=== PATIENT | male | born 1985 | race Caucasian/White ===

== ENCOUNTER 2016-10-26 04:00 | Inpatient (IN) | payer OTHER ==
[~2016-10-26] VITALS: Ht 182.9 cm; Wt 101.0 kg
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
--- NOTE | ~2016-10-26 | OR ---
PATIENT'S NAME: EDY GODINEZ [facility] AGE: 30 Y [address] ROOM: [address] [address] LOCATION: GICU ADMIT DATE: 10/26/2016 OR/Procedure Report DISCHARGE DATE: FAMILY PHYSICIAN: Lisa Van MD ATTENDING PHYSICIAN: Arnaldo Griffith SURGEON: Arnaldo Griffith MD COUNTER CONTROL OPERATOR: DATE OF PROCEDURE: 10/30/2016 DIAGNOSES: 1. Right acetabular comminuted posterior wall fracture, unstable. 2. Traumatic dislocation of right hip, now status post relocation in traction. 3. Chondromalacia, right hip femoral head. 4. Loose bodies within the right hip joint. 5. Sciatic nerve injury. 6. Debridement of devitalized tissues from dislocation 7. Remove Right Femoral Traction Pin ANESTHESIA: General. INDICATION: Mr. Godinez is four days status post polytrauma, had planned for open reduction and internal fixation of the right hip acetabulum yesterday, but there were thermal changes about the right hip from ice, which persisted despite removing the ice and applying warm blankets. Now, the skin is completely stable. There is no induration. Completely normal sensation. Surgery is safe. Plan for removal of loose bodies from the hip joint, chondroplasty of the femoral head, open reduction and internal fixation of the posterior acetabulum, and decompression of the sciatic nerve as well as debridement of devitalized tissue from the dislocation and trauma. Risks, benefits, and alternatives have all been discussed. Family understands risks of avascular necrosis, chondrolysis, and severe traumatic osteoarthritis, will be nonweightbearing for three months after surgery. Before beginning weightbearing, we will repeat CT scan and do a diagnostic arthroscopy. DESCRIPTION OF PROCEDURE: Mr. Godinez was taken to the operating room, 2 g Kefzol intravenously for prophylaxis, TSA protocol, general anesthetic via endotracheal tube. The right femoral traction pin was removed after prep with betadyne. Carefully positioned in a left lateral decubitus position. All pressure points were carefully checked and padded. The right flank, buttocks, and lower extremity were prepared with DuraPrep and draped sterilely. 18 cm Rose Mary-Lang[place] incision was performed, dissection through subcutaneous tissues to the gluteal fascia and the iliotibial band. Iliotibial band was opened at the anterior corner of the greater trochanter and distally was opened for approximately 3 cm. Proximally, the interval between the gluteal boris heads was identified and the fascia was released. Short rotators were identified. There was significantly traumatized from the injury. These were carefully and meticulously debrided. The sciatic nerve PATIENT'S NAME: EDY GODINEZ [facility] AGE: 30 Y [address] ROOM: [place] [address] LOCATION: GICU ADMIT DATE: 10/26/2016 OR/Procedure Report DISCHARGE DATE: FAMILY PHYSICIAN: Lisa Van MD ATTENDING PHYSICIAN: Arnaldo Griffith was identified and protected. The piriformis was divided approximately 2 cm medial to its insertion. It was tagged. Sciatic nerve was identified for the length of the incision. It was carefully and meticulously decompressed and noted to have significant contusions and surrounding hematoma. This was all debrided and irrigated. Remaining short rotators were divided approximately 2 cm medial to their insertion to protect the blood supply to the hip. Vastus lateralis was identified. Trochanteric step osteotomy was performed just taking a few fibers of the piriformis approximately 1.5 cm thick and ending at the tuberosity. This was retracted anteriorly. The capsule was divided longitudinally at its anterior lateral border, anteriorly extended distally, posteriorly extended proximally and through the fracture fragments. The hip was carefully dislocated. Ligamentum teres was disrupted from the previous dislocation and trauma. There were bone fragments within the joint. This was all carefully and meticulously debrided. There were two 1.5 cm diameter areas of at least grade 3 chondromalacia. Chondroplasty was performed. Noted to have excellent bleeding bone. The amount of dislocation time was minimized to less than 5 minutes. All remaining cartilage was stable and healthy. No significant chondromalacia within the acetabulum, but there were comminuted fractures of the posterior wall. The hip was relocated. The anterior and longitudinal capsules were closed watertight with 0 Vicryl with knots on the outside. Fracture fragments of the posterior wall were carefully debrided of blood clot and devitalized tissue. They were irrigated. They were anatomically reduced. Three screws were placed parallel to the joint and a 7- hole reconstruction plate was contoured, two screws distally and two screws proximally. Fixation was very stable. Hip easily moved. Intraoperative O- arm was used for imaging. The most lateral screw parallel to the joint surface was just at the articular border but was good. The middle screw was in the joint. The most medial screw in good position. The plate was in excellent position. Hip was well reduced concentrically and there were no remaining fragments within the joint. The middle screw that was in the joint was removed. The hip was then carefully examined and continued to be very stable. No need to replace the screw. The wound was irrigated. The remaining superior portion of the posterior capsule was repaired with 0 Vicryl. Short rotators and piriformis were reattached with 0 Vicryl. Step osteotomy was reattached anatomically with two 4.5 screws with washers. Fixation was excellent and was bicortical through the lesser trochanter, iliotibial band and the gluteal fascia were repaired with #1 Ethibond. Subcutaneous tissues were closed with 0 Vicryl, followed by 2-0 Vicryl subcuticular, followed by aura. Procedure was done without complication. Estimated blood loss from the procedure was 500 mL. No complications. FINDINGS: 1. Contused sciatic nerve, otherwise intact, well decompressed. 2. Excellent bleeding from the femoral head. 3. Excellent bone quality with very good fixation. PATIENT'S NAME: EDY GODINEZ [facility] AGE: 30 Y [address] ROOM: [place] [address] LOCATION: [facility] ADMIT DATE: 10/26/2016 OR/Procedure Report DISCHARGE DATE: FAMILY PHYSICIAN: Lisa Van MD ATTENDING PHYSICIAN: Arnaldo Griffith The patient was taken to the recovery room in stable condition. Postoperative x-rays showed concentric reduction of the femoral head with fixation in place. ARNALDO GRIFFITH MD DPM/latoya /[id number] d: 10/31/16 0216 t: 11/02/16 0843, OPERATIVE SUMMARY
--- NOTE | ~2016-10-26 | OR ---
PATIENT'S NAME: EDY GODINEZ [facility] AGE: 30 Y [address] ROOM: [place] [address] LOCATION: GICU ADMIT DATE: 10/26/2016 OR/Procedure Report DISCHARGE DATE: FAMILY PHYSICIAN: Lisa Van MD ATTENDING PHYSICIAN: Arnaldo Griffith SURGEON: Arnaldo Griffith MD LEAD TINNER: DATE OF PROCEDURE: 10/29/2016 DIAGNOSES: 1. Right acetabular posterior wall fracture. 2. Status post relocation of right hip dislocation. 3. Chondromalacia, right femoral head. 4. Sciatic nerve injury. 5. Persisting thermal changes about right buttocks. PROCEDURE: 1. Removal of femoral traction pin. 2. Replacement of femoral traction pin and replacement in traction. ANESTHESIA: General. INDICATION: Mr. Godinez is now 72 hours status post polytrauma with a right acetabular fracture for open reduction and internal fixation. Risks, benefits, and alternatives have been discussed. On dial, he has chondromalacia and will benefit from chondroplasty and with the sciatic nerve injury, would benefit from decompression. Risks, benefits, alternatives have all been discussed. DESCRIPTION OF PROCEDURE: The patient was taken to the operating, was taken from traction. The right femoral traction pin was removed, was turned onto the operative table in a left lateral decubitus position. There was a significant area of thermal changes about the right flank on the right buttock, covered with a warm blankets what was set up. For about 45 minutes, the patient was observed. Still had significant changes with some induration opted to cancel reconstructive surgery for tonight. The femoral traction was replaced and was placed back into traction. X-ray in recovery room demonstrated that the hip remained located and with a concentric reduction. We will plan to observe the skin and to perform open reduction and internal fixation when the skin is stable. ARNALDO GRIFFITH MD PATIENT'S NAME: EDY GODINEZ [facility] AGE: 30 Y [address] ROOM: [place] [address] LOCATION: GICU ADMIT DATE: 10/26/2016 OR/Procedure Report DISCHARGE DATE: FAMILY PHYSICIAN: Lisa Van MD ATTENDING PHYSICIAN: Arnaldo Griffith DPM/latoya /[id number] d: 10/31/16 0203 t: 11/02/16 0831, OPERATIVE SUMMARY
--- NOTE | ~2016-10-26 | OR ---
PATIENT'S NAME: EDY MEADOWS [facility] AGE: 30 Y [address] ROOM: [address] [address] LOCATION: [facility] ADMIT DATE: 10/26/2016 OR/Procedure Report DISCHARGE DATE: FAMILY PHYSICIAN: PHYSICIAN, UNKNOWN ATTENDING PHYSICIAN: Arnaldo Kauffman SURGEON: Arnaldo Kauffman MD PLASTER LATHER: DATE OF PROCEDURE: 10/26/2016 DIAGNOSIS: Right hip traumatic dislocation and acetabular fracture. PROCEDURE: Closed relocation of the right hip and application of a femoral traction pin. ANESTHESIA: Local and MAC. INDICATION: Polytrauma, dislocated hip since last night, urgent relocation indicated. Risks, benefits, and alternatives have been discussed. Family understands the risk of avascular necrosis and chondrolysis for closed relocation and application of a femoral traction pin. We will observe in traction for 72 hours and then plan open reduction and internal fixation of the acetabulum. The patient and family understands the plan. DESCRIPTION OF PROCEDURE: In the emergency room, informed consent, anesthesia for MAC anesthesia. Local anesthesia was applied medially and laterally of the right femur just above the patella. Prepped with. DuraPrep. A 5-mm incision was made medially just above the patella on the medial surface. 316 smooth K-wire was advanced from medial to lateral. When the skin was tented, it was nicked with a 5 mm incision. Traction bow was applied. Very carefully, the hip was relocated. The patient was transferred to the hospital bed which traction had been set up on, 30 pounds of axial femoral traction was applied with slings under the calf and the thigh. X-ray was taken, showed with concentric reduction. Procedure was done without complication. MD AURELIO GLEZM/modl /[id number] d: 10/26/16 1514 t: 10/29/16 1844, OPERATIVE SUMMARY
--- NOTE | ~2016-10-26 | DS ---
PATIENT'S NAME: EDY GODINEZ [facility] AGE: 30 Y [address] ROOM: [id number] [place], [place] [address] LOCATION: G3N ADMIT DATE: 10/26/2016 Discharge Summary DISCHARGE DATE: 11/02/2016 FAMILY PHYSICIAN: Lisa Van MD ATTENDING PHYSICIAN: Arnaldo Griffith Mr. Godinez is a healthy 30-year-old white male, polytrauma, right hip dislocation, right hip acetabulum, posterior wall comminuted fracture, cartilage injury to the right femoral head. He was in the emergency room emergently relocated and placed in traction, also had a sprain to his neck, protected in an [place] collar, and the refracture through a previous fracture of a plated fourth metacarpal. He was noted on initial evaluation to have a foot drop on the right. He was medically optimized, taken to the operating room, open reduction and internal fixation of the acetabulum, decompression of the sciatic nerve, chondroplasty of the femoral head defects, debridement of devitalized tissue from the dislocation, and removal of femoral traction pin. Procedure was done without complication. An ankle-foot orthosis was fitted. His cervical spine was cleared with upright x-rays followed by dynamic x-rays with a normal upper extremity neurologic examination. There was no instability. Plan for discharge to home on a regular diet. Change the dressing each day. Activity up, nonweightbearing on the right. Mom will do gentle range of motion of the hip, ankle-foot orthosis when up. High risk of DVT, will be on Lovenox 40 mg once a day for 2 months. [place] for pain. We will transition to Tylenol as pain improves, understands that there is significant risk of avascular necrosis, chondrolysis, and traumatic osteoarthritis. Will be nonweightbearing for 3 months. At 3 months, we will do a CT scan of the hip followed by a diagnostic arthroscopy prior to beginning weightbearing, may or may not remove fixation. We will monitor closely for the development of avascular necrosis. The left hand, we will monitor for healing, may require removal of previous fixation, and refixation and bone grafting if symptoms do not resolve. Does have a significant malunion from the previous surgery and this could be corrected at the same time. Understands that the foot drop may or may not resolve on the right. Follow up with Dr. Griffith on November 18, 2016 at 9 a.m. X-rays have been ordered at the [facility] including an AP x-ray of the pelvis, Judet views of the right hip, and left hand series. ARNALDO GRIFFITH MD DPM/latoya PATIENT'S NAME: EDY GODINEZ [facility] AGE: 30 Y [address] ROOM: [place] [address] LOCATION: [facility] ADMIT DATE: 10/26/2016 Discharge Summary DISCHARGE DATE: 11/02/2016 FAMILY PHYSICIAN: Lisa Van MD ATTENDING PHYSICIAN: Arnaldo Griffith /[id number] d: 11/02/16 1323 t: 11/05/16 1611, DISCHARGE SUMMARY
[2016-10-26 04:24] LABS: BASOPHIL % 0.2 %; EOSINOPHIL % 0.1 %; HEMATOCRIT 48.1 % (37.0-53.0); HEMOGLOBIN 16.4 g/dL (12.0-17.0); IMMATURE GRANULOCYTE # 0.1 K/uL (0.0-0.3); IMMATURE GRANULOCYTE % 0.4 %; LYMPHOCYTE # 1.7 K/uL (0.8-4.0); LYMPHOCYTE % 9.9 %; MCH 30.3 pg (27.0-34.0); MCHC 34.1 gm/dL (32.0-36.5); MCV 88.7 fl (83.0-98.0); MONOCYTE # 0.6 K/uL (0.0-1.0); MONOCYTE % 3.3 %; NEUTROPHIL # (ANC) 14.4 K/uL (1.4-9.0); NEUTROPHIL % 86.1 %; NRBC % 0 /100WBC (0-0.00); PLATELET COUNT 261 K/uL (150-450); RBC 5.42 M/uL (4.00-6.00); RDW-CV 12.3 % (11.9-14.6)
[2016-10-26 04:25] LABS: WBC 16.8 K/uL (4.0-11.0)
[2016-10-26 04:34] LABS: INR - (THERAPEUTIC) 0.96 (0.92-1.07); PROTIME 10.1 SECONDS (9.8-11.4); PTT 27 SECONDS (25-32)
[2016-10-26 04:41] LABS: ALBUMIN 4.1 gm/dL (3.5-5.0); ANION GAP 13.2 (10.0-19.0); CALCIUM 8.1 mg/dL (8.5-10.5); CREATININE 1.2 mg/dL (0.6-1.3); POTASSIUM 4.2 mMol/L (3.7-5.1); TOTAL BILIRUBIN 0.3 mg/dL (0.0-1.5); TOTAL PROTEIN 7.8 g/dL (6.0-8.4)
[2016-10-27 07:42] LABS: HEMATOCRIT 43.6 % (37.0-53.0); HEMOGLOBIN 15.2 g/dL (12.0-17.0)
[2016-10-28 06:09] LABS: BASOPHIL % 0.4 %; EOSINOPHIL # 0.4 K/uL (0.0-0.5); EOSINOPHIL % 4.3 %; HEMATOCRIT 44.7 % (37.0-53.0); HEMOGLOBIN 15.3 g/dL (12.0-17.0); IMMATURE GRANULOCYTE % 0.4 %; LYMPHOCYTE % 22.9 %; MCH 30.2 pg (27.0-34.0); MCHC 34.2 gm/dL (32.0-36.5); MCV 88.2 fl (83.0-98.0); MONOCYTE # 0.8 K/uL (0.0-1.0); MPV 9.2 fl (9.4-12.4); NEUTROPHIL # (ANC) 5.4 K/uL (1.4-9.0); NRBC % 0 /100WBC (0-0.00); PLATELET COUNT 220 K/uL (150-450); RBC 5.07 M/uL (4.00-6.00); RDW-CV 12.1 % (11.9-14.6); WBC 8.6 K/uL (4.0-11.0)
[2016-10-29 05:41] LABS: BASOPHIL % 0.4 %; EOSINOPHIL # 0.4 K/uL (0.0-0.5); EOSINOPHIL % 5.4 %; HEMATOCRIT 44.7 % (37.0-53.0); HEMOGLOBIN 15.6 g/dL (12.0-17.0); IMMATURE GRANULOCYTE % 0.4 %; LYMPHOCYTE # 1.9 K/uL (0.8-4.0); LYMPHOCYTE % 23.9 %; MCH 30.6 pg (27.0-34.0); MCHC 34.9 gm/dL (32.0-36.5); MCV 87.6 fl (83.0-98.0); MONOCYTE # 0.7 K/uL (0.0-1.0); MONOCYTE % 9.1 %; MPV 9.3 fl (9.4-12.4); NEUTROPHIL # (ANC) 4.7 K/uL (1.4-9.0); NEUTROPHIL % 60.8 %; NRBC % 0 /100WBC (0-0.00); PLATELET COUNT 239 K/uL (150-450); RDW-CV 11.8 % (11.9-14.6); WBC 7.8 K/uL (4.0-11.0)
[2016-10-29 05:57] LABS: ANION GAP 8.9 (10.0-19.0); BLOOD UREA NITROGEN 8 mg/dL (6-24); CALCIUM 8.9 mg/dL (8.5-10.5); CHLORIDE 102 mMol/L (96-110); CO2 28 mMol/L (22-32); MAGNESIUM 2.2 mg/dL (1.8-2.6); POTASSIUM 3.9 mMol/L (3.7-5.1); SODIUM 135 mMol/L (135-145)
[2016-10-30 05:38] LABS: BASOPHIL % 0.1 %; EOSINOPHIL % 0.1 %; HEMATOCRIT 41.7 % (37.0-53.0); HEMOGLOBIN 15.1 g/dL (12.0-17.0); IMMATURE GRANULOCYTE % 0.3 %; LYMPHOCYTE # 0.8 K/uL (0.8-4.0); LYMPHOCYTE % 8.8 %; MCH 31.4 pg (27.0-34.0); MCHC 36.2 gm/dL (32.0-36.5); MCV 86.7 fl (83.0-98.0); MONOCYTE # 0.6 K/uL (0.0-1.0); MONOCYTE % 6.2 %; MPV 9.1 fl (9.4-12.4); NEUTROPHIL # (ANC) 7.4 K/uL (1.4-9.0); NEUTROPHIL % 84.5 %; NRBC % 0 /100WBC (0-0.00); PLATELET COUNT 271 K/uL (150-450); RBC 4.81 M/uL (4.00-6.00); RDW-CV 11.6 % (11.9-14.6); WBC 8.8 K/uL (4.0-11.0)
[2016-10-30 20:31] LABS: PCO2 37 mmHg (35-45)
[2016-10-30 20:32] LABS: BICARBONATE 23.5 mmol/L (18.0-23.0); PO2 103 mmHg (80-90); SODIUM 136 mEq/L (135-145)
[2016-10-30 20:33] LABS: POTASSIUM 4.4 mEq/L (3.7-5.1)
[2016-10-31 05:09] LABS: ANION GAP 9.2 (10.0-19.0); BLOOD UREA NITROGEN 15 mg/dL (6-24); CALCIUM 7.8 mg/dL (8.5-10.5); CHLORIDE 106 mMol/L (96-110); CO2 27 mMol/L (22-32); CREATININE 0.8 mg/dL (0.6-1.3); POTASSIUM 4.2 mMol/L (3.7-5.1); SODIUM 138 mMol/L (135-145)
[2016-10-31 05:22] LABS: BASOPHIL % 0.2 %; EOSINOPHIL % 0.3 %; HEMOGLOBIN 11.4 g/dL (12.0-17.0); IMMATURE GRANULOCYTE % 0.2 %; LYMPHOCYTE # 1.5 K/uL (0.8-4.0); LYMPHOCYTE % 16.6 %; MCH 31.4 pg (27.0-34.0); MCHC 34.8 gm/dL (32.0-36.5); MCV 90.4 fl (83.0-98.0); MONOCYTE % 11.5 %; MPV 9.3 fl (9.4-12.4); NEUTROPHIL # (ANC) 6.3 K/uL (1.4-9.0); NEUTROPHIL % 71.2 %; NRBC % 0 /100WBC (0-0.00); PLATELET COUNT 251 K/uL (150-450); RBC 3.63 M/uL (4.00-6.00); RDW-CV 11.9 % (11.9-14.6); WBC 8.8 K/uL (4.0-11.0)
[2016-10-31 05:26] LABS: HEMATOCRIT 32.8 % (37.0-53.0)
[2016-11-01 05:19] LABS: BASOPHIL # 0.1 K/uL (0.0-0.2); BASOPHIL % 0.4 %; EOSINOPHIL # 0.1 K/uL (0.0-0.5); EOSINOPHIL % 0.6 %; HEMOGLOBIN 11.8 g/dL (12.0-17.0); IMMATURE GRANULOCYTE % 0.3 %; LYMPHOCYTE # 1.5 K/uL (0.8-4.0); LYMPHOCYTE % 13.3 %; MCHC 34.7 gm/dL (32.0-36.5); MCV 89.2 fl (83.0-98.0); MONOCYTE # 1.4 K/uL (0.0-1.0); MPV 9.3 fl (9.4-12.4); NEUTROPHIL # (ANC) 8.5 K/uL (1.4-9.0); NEUTROPHIL % 73.4 %; NRBC % 0 /100WBC (0-0.00); PLATELET COUNT 271 K/uL (150-450); RBC 3.81 M/uL (4.00-6.00); RDW-CV 11.8 % (11.9-14.6); WBC 11.5 K/uL (4.0-11.0)
[2016-11-01 05:32] LABS: ANION GAP 9.8 (10.0-19.0); BLOOD UREA NITROGEN 8 mg/dL (6-24); CALCIUM 8.1 mg/dL (8.5-10.5); CHLORIDE 103 mMol/L (96-110); CO2 26 mMol/L (22-32); CREATININE 0.7 mg/dL (0.6-1.3); MAGNESIUM 2.2 mg/dL (1.8-2.6); POTASSIUM 3.8 mMol/L (3.7-5.1); SODIUM 135 mMol/L (135-145)
[2016-11-02] MEDS ORDERED: NORCO 5-325 TA1 EACH PO (12:17)
[2016-11-02] MEDS ORDERED: FEOSOL325 MG PO (12:17)
[2016-11-02] MEDS ORDERED: LOVENOX 4040 MG/0.4 SUB-Q (12:18)
[2016-11-02] MEDS ORDERED: COLACE100 MG PO (12:22)
== END 2016-11-02 15:45 | disposition disaster alternative care site (69) | DRG 515 ==
LOC: GACC 04:00 → G3N 11:42 → GICU 10-29 22:00 → G3N 10-31 14:37
PROVIDERS: Emergency Medicine; Nurse Practitioner Family; Physician Assistant; ADMIT Orthopaedic Surgery
PROC: 0QH Lower Bones, Insertion (ICD-10-PCS; principal; 2016-10-26)
PROC: 0QS Lower Bones, Reposition (ICD-10-PCS; principal; 2016-10-26)
PROC: 0SP Lower Joints, Removal (ICD-10-PCS; 2016-10-30)
DX: S73.006A Unspecified dislocation of unspecified hip, initial encounter (principal); J96.01 Acute respiratory failure with hypoxia; S27.329A Contusion of lung, unspecified, initial encounter; F10.929 Alcohol use, unspecified with intoxication, unspecified; I10 Essential (primary) hypertension; F17.200 Nicotine dependence, unspecified, uncomplicated; V49.9XXA Car occupant (driver) (passenger) injured in unspecified traffic accident, initial encounter; Y92.410 Unspecified street and highway as the place of occurrence of the external cause
CPT/HCPCS: C1713; G0480; J0690; J1100; J1170; J1650; J2250; J2270; J2405; J3010; J3360; J3480; J7030; J7040

== ENCOUNTER → 2016-11-11 | Outpatient (CLI) | payer SELFPAY ==
[~2016-11-11] MED LIST: COLACE100 MG PO; FEOSOL325 MG PO; LOVENOX 4040 MG/0.4 SUB-Q; NORCO 5-325 TA1 EACH PO
== END | disposition disaster alternative care site (69) ==
LOC: GRAD 08:00
DX: S73.004D Unspecified dislocation of right hip, subsequent encounter (principal); S32.401D Unspecified fracture of right acetabulum, subsequent encounter for fracture with routine healing; Z98.890 Other specified postprocedural states

== ENCOUNTER → 2016-12-10 | Outpatient (CLI) | payer SELFPAY | END | disposition disaster alternative care site (69) | LOC: GRAD 12-02 08:00 | DX: M79.642 Pain in left hand (principal); S32.401D Unspecified fracture of right acetabulum, subsequent encounter for fracture with routine healing; R10.2 Pelvic and perineal pain; X58.XXXD Exposure to other specified factors, subsequent encounter ==